=== PATIENT | male | born 2000 | race Caucasian/White ===

== ENCOUNTER 2018-08-08 12:04 | Emergency (ER) | payer OTHER ==
--- NOTE | 2018-08-08 12:12 | ER Report ---
History and Physical Time Seen By MD: 12:12 HPI/ROS CHIEF COMPLAINT: Headache, dizziness, nausea, vertigo HISTORY OF PRESENT ILLNESS: Patient is a 18-year-old male here with a four-month history of the above complaints which are slowly improving but were exacerbated in the past several days when the patient took a flight to [place]. Patient has had a workup including MR imaging of the brain, labs, several CAT scans which have been found to be unremarkable. Patient reports that since he was unable to take a flight home from [place] his father met him in is driving him across country. Patient is afebrile, hemodynamically stable with no focal neurological deficits. Patient denies trauma or other medical problems and takes no other medications at this time. Patient reports of the past several hours his symptoms worsened prompting evaluation. REVIEW OF SYSTEMS: Constitutional: No fever, no chills. Eyes: No discharge. ENT: No sore throat. Cardiovascular: No chest pain, no palpitations. Respiratory: No cough, no shortness of breath. Gastrointestinal: No abdominal pain, no vomiting. Genitourinary: No hematuria. Musculoskeletal: + neck pain/soreness Skin: No rashes. Neurological: + headache, lightheadedness Allergies: Coded Allergies: No Known Drug Allergies (Unverified , 08/08/18) Home Meds No Active Prescriptions or Reported Meds Constitutional Vital Sign - Last 24 Hours 08/08/18 12:11 Temp 99.0 Pulse 95 Resp 20 B/P (MAP) 131/75 Pulse Ox 93 O2 Delivery Room Air Physical Exam General Appearance: The patient is alert, has no immediate need for airway protection and no signs of toxicity. + uncomfortable appearing Eyes: Pupils equal and round no pallor or injection, + bi directional fatigable nystagmus ENT, Mouth: Mucous membranes are moist. Respiratory: There are no retractions, lungs are clear to auscultation. Cardiovascular: Regular rate and rhythm. Gastrointestinal: Abdomen is soft and non tender, no masses, bowel sounds normal. Neurological: No focal neuro deficits Skin: Warm and dry, no rashes. Musculoskeletal: Neck is supple non tender. Extremities are nontender, nonswollen and have full range of motion. DIFFERENTIAL DIAGNOSIS: After history and physical exam differential diagnosis was considered for dizziness including but not limited to peripheral and central causes of vertigo, orthostatic causes including dehydration, and blood loss. Medical Decision Making Data Points Result Diagram: 08/08/18 1233 08/08/18 1233 Laboratory Hematology Test 08/08/18 12:20 08/08/18 12:33 Urine Color Straw Urine Clarity Clear Urine pH 7.0 pH (4.8-9.5) Urine Specific [place] 1.006 Urine Protein Negative mg/dL (NEGATIVE) Urine Glucose (UA) Negative mg/dL (NEGATIVE) Urine Ketones Negative mg/dL (NEGATIVE) Urine Blood Negative (NEGATIVE) Urine Nitrite Negative (NEGATIVE) Urine Bilirubin Negative (NEGATIVE) Urine Urobilinogen Negative mg/dL (0.2-1.9) Urine Leukocyte Esterase Negative (NEGATIVE) Urine RBC <1 /HPF (0-2/HPF) Urine WBC <1 /HPF (0-5/HPF) Urine Squamous Epithelial Cells None /LPF (</=FEW) Urine Bacteria Negative /HPF (NONE-FEW) Urine Mucus None /HPF (NONE-FEW) Red Blood Count 5.19 M/uL (4.00-5.60) Mean Corpuscular Volume 90.1 fL (80.0-96.0) Mean Corpuscular Hemoglobin 30.6 pg (26.0-33.0) Mean Corpuscular Hemoglobin Concent 34.0 g/dL (32.0-36.0) Red Cell Distribution Width 13.1 % (11.5-14.5) Mean Platelet Volume 7.1 fL (7.2-11.1) Neutrophils (%) (Auto) 65.0 % (39.4-72.5) Lymphocytes (%) (Auto) 26.6 % (17.6-49.6) Monocytes (%) (Auto) 7.5 % (4.1-12.4) Eosinophils (%) (Auto) 0.5 % (0.4-6.7) Basophils (%) (Auto) 0.4 % (0.3-1.4) Nucleated RBC Relative Count (auto) 0.0 /100WBC Neutrophils # (Auto) 4.4 K/uL (2.0-7.4) Lymphocytes # (Auto) 1.8 K/uL (1.3-3.6) Monocytes # (Auto) 0.5 K/uL (0.3-1.0) Eosinophils # (Auto) 0.0 K/uL (0.0-0.5) Basophils # (Auto) 0.0 K/uL (0.0-0.1) Nucleated RBC Absolute Count (auto) 0.00 K/uL Erythrocyte Sedimentation Rate 2 mm/HOUR (0-15) Sodium Level 141 mmol/L (137-145) Potassium Level 3.6 mmol/L (3.5-5.0) Chloride Level 106 mmol/L (98-107) Carbon Dioxide Level 24 mmol/L (22-30) Blood Urea Nitrogen 13 mg/dl (9-21) Creatinine 1.10 mg/dl (0.66-1.25) Glomerular Filtration Rate Calc > 60.0 Random Glucose 109 mg/dl (75-110) Calcium Level 9.7 mg/dl (8.4-10.2) Total Bilirubin 0.6 mg/dl (0.2-1.3) Aspartate Amino Transf (AST/SGOT) 18 U/L (0-35) Alanine Aminotransferase (ALT/SGPT) 35 U/L (0-56) Alkaline Phosphatase 75 U/L (0-126) C-Reactive Protein < 0.5 mg/dl (<1.0) Total Protein 7.7 g/dl (6.3-8.2) Albumin 4.5 g/dl (3.5-5.0) Chemistry Test 08/08/18 12:20 08/08/18 12:33 Urine Color Straw Urine Clarity Clear Urine pH 7.0 pH (4.8-9.5) Urine Specific [place] 1.006 Urine Protein Negative mg/dL (NEGATIVE) Urine Glucose (UA) Negative mg/dL (NEGATIVE) Urine Ketones Negative mg/dL (NEGATIVE) Urine Blood Negative (NEGATIVE) Urine Nitrite Negative (NEGATIVE) Urine Bilirubin Negative (NEGATIVE) Urine Urobilinogen Negative mg/dL (0.2-1.9) Urine Leukocyte Esterase Negative (NEGATIVE) Urine RBC <1 /HPF (0-2/HPF) Urine WBC <1 /HPF (0-5/HPF) Urine Squamous Epithelial Cells None /LPF (</=FEW) Urine Bacteria Negative /HPF (NONE-FEW) Urine Mucus None /HPF (NONE-FEW) White Blood Count 6.8 k/uL (4.5-11.0) Red Blood Count 5.19 M/uL (4.00-5.60) Hemoglobin 15.9 g/dL (14.0-18.0) Hematocrit 46.8 % (42.0-52.0) Mean Corpuscular Volume 90.1 fL (80.0-96.0) Mean Corpuscular Hemoglobin 30.6 pg (26.0-33.0) Mean Corpuscular Hemoglobin Concent 34.0 g/dL (32.0-36.0) Red Cell Distribution Width 13.1 % (11.5-14.5) Platelet Count 309 K/uL (150-450) Mean Platelet Volume 7.1 fL (7.2-11.1) Neutrophils (%) (Auto) 65.0 % (39.4-72.5) Lymphocytes (%) (Auto) 26.6 % (17.6-49.6) Monocytes (%) (Auto) 7.5 % (4.1-12.4) Eosinophils (%) (Auto) 0.5 % (0.4-6.7) Basophils (%) (Auto) 0.4 % (0.3-1.4) Nucleated RBC Relative Count (auto) 0.0 /100WBC Neutrophils # (Auto) 4.4 K/uL (2.0-7.4) Lymphocytes # (Auto) 1.8 K/uL (1.3-3.6) Monocytes # (Auto) 0.5 K/uL (0.3-1.0) Eosinophils # (Auto) 0.0 K/uL (0.0-0.5) Basophils # (Auto) 0.0 K/uL (0.0-0.1) Nucleated RBC Absolute Count (auto) 0.00 K/uL Erythrocyte Sedimentation Rate 2 mm/HOUR (0-15) Glomerular Filtration Rate Calc > 60.0 Calcium Level 9.7 mg/dl (8.4-10.2) Total Bilirubin 0.6 mg/dl (0.2-1.3) Aspartate Amino Transf (AST/SGOT) 18 U/L (0-35) Alanine Aminotransferase (ALT/SGPT) 35 U/L (0-56) Alkaline Phosphatase 75 U/L (0-126) C-Reactive Protein < 0.5 mg/dl (<1.0) Total Protein 7.7 g/dl (6.3-8.2) Albumin 4.5 g/dl (3.5-5.0) Urinalysis Test 08/08/18 12:20 Urine Color Straw Urine Clarity Clear Urine pH 7.0 pH (4.8-9.5) Urine Specific [place] 1.006 Urine Protein Negative mg/dL (NEGATIVE) Urine Glucose (UA) Negative mg/dL (NEGATIVE) Urine Ketones Negative mg/dL (NEGATIVE) Urine Blood Negative (NEGATIVE) Urine Nitrite Negative (NEGATIVE) Urine Bilirubin Negative (NEGATIVE) Urine Urobilinogen Negative mg/dL (0.2-1.9) Urine Leukocyte Esterase Negative (NEGATIVE) Urine RBC <1 /HPF (0-2/HPF) Urine WBC <1 /HPF (0-5/HPF) Urine Squamous Epithelial Cells None /LPF (</=FEW) Urine Bacteria Negative /HPF (NONE-FEW) Urine Mucus None /HPF (NONE-FEW) ED Course/Re-evaluation ED Course Patient is a 18-year-old male here with complaints of dizziness, headache, neck soreness, vertigo which has been ongoing for the past 4 months with acute exacerbation over the past several hours. See history of present illness for further details. Patient is driving back from [place] since he had an acute exacerbation while on a flight. Patient has had prior MR imaging CAT scans and workup which were found to be normal. Patient does have bidirectional horizontal fatigable nystagmus at time of evaluation. Repeat imaging was held at this time because he has an MRI of the brain repeat when he gets back to [place]. Patient labs including CBC, CMP, and inflammatory markers were unremarkable. Patient was given fluids, Ativan, Reglan, Toradol, magnesium, Decadron for symptom management. Patient reports some relief of symptoms. Patient was given a soft collar for neck support and a prescription for diazepam and Zofran for treatment. Patient was stable at time of discharge. Decision to Disposition Date: Aug 08, 2018 Decision to Disposition Time: 14:06 Depart Departure Latest Vital Signs Vital Signs Date Time Temp Pulse Resp B/P (MAP) Pulse Ox O2 Delivery O2 Flow Rate FiO2 08/08/18 12:11 99.0 95 20 131/75 93 Room Air Impression: Primary Impression: Headache Additional Impression: Dizziness Condition: Improved Disposition: HOME OR SELF-CARE New Scripts Ondansetron 4 Mg Odt (ONDANSETRON 4 MG ODT) 4 Mg Tab.rapdis 4 MG PO ONCE, #20 TAB Prov: ELIESER AVILA DO 08/08/18 Diazepam (DIAZEPAM) 5 Mg Tablet 5 MG PO Q8H PRN for DIZZINESS, #5 TAB Prov: ELIESER AVILA DO 08/08/18 Patient Instructions: Acute Headache (ED), Vertigo (ED) Additional Instructions: Please drink plenty of water. You may take 1 tablet of diazepam every 8 hours as needed for dizziness, anxiety. You may take 1 tablet of Zofran every 4-6 hours as needed for nausea and vomiting. Please return promptly if you develop fevers, blurred vision, double vision, inability to keep down food or fluids. Problem Qualifiers ELIESER AVILA DO Aug 08, 2018 12:12
[2018-08-08] MEDS ORDERED: NS(*) 0.9% 1000 ML BAG 1,000 ML IV ONE (12:28)
[2018-08-08] MEDS ORDERED: DEXAMETHASONE SOD PHOS 10MG/ML IVP ONE (12:30)
[2018-08-08] MEDS ORDERED: KETOROLAC 30 MG/ML VIAL IVP ONE (12:30)
[2018-08-08] MEDS ORDERED: MAGNESIUM SUL/D5W* 1 GM/100 ML 100 ML IVPB ONE (12:30)
[2018-08-08] MEDS ORDERED: METOCLOPRAMIDE 10 MG/2 ML SDV IVP ONE (12:30)
[2018-08-08] MEDS ORDERED: LORazepam 2 MG/ML VIAL IVP ONE (12:35)
[2018-08-08 12:45] LABS: PLATELET COUNT, AUTOMATED 309 K/uL (150-450)
[2018-08-08 14:00] VITALS: BP 132/84
[2018-08-08] MEDS ORDERED: DIAZ-308 PO (14:03)
[2018-08-08] MEDS ORDERED: ONDA4TAB9 PO (14:03)
== END 2018-08-08 14:05 | disposition home or self-care (01) ==
LOC: ER 12:16
DX: R51 Headache (principal); R42 Dizziness and giddiness
CPT/HCPCS: 81001; 85025; 85651; 86140; 96365; 96375; 99284; J1100; J1885; J2060; J2765; J3475; J7030; L0120; 82040; 82247; 82310; 82374; 82435; 82565; 82947; 84075; 84132; 84155; 84295; 84450; 84460; 84520